=== PATIENT | female | born 1985 | race Caucasian/White ===

== ENCOUNTER 2020-11-17 18:08 | Emergency (ER) | payer OTHER ==
[2020-11-17] MEDS ORDERED: MOBIC7.5 MG PO ×2 (20:58→20:59)
[2020-11-17] MEDS ORDERED: NORCO 5-325 TA1 EACH PO ×2 (20:58→20:59)
[2020-11-17] MEDS ORDERED: CYCLOBENZAPRINE10 MG PO ×2 (20:58→20:59)
[2020-11-17] MEDS ORDERED: MEDROL 4MG DOSEP4 MG PO ×2 (20:58→20:59)
== END 2020-11-17 21:10 | disposition home or self-care (01) ==
LOC: FER 18:08
DX: M54.5 Low back pain (principal); F17.210 Nicotine dependence, cigarettes, uncomplicated; Z88.0 Allergy status to penicillin; Z88.8 Allergy status to other drugs, medicaments and biological substances
CPT/HCPCS: 72100; J1885; J7512